=== PATIENT | female | born 2000 | race Caucasian/White ===

== ENCOUNTER 2022-03-21 08:30 | Outpatient (RCR) | payer OTHER, SELFPAY ==
--- NOTE | 2022-02-16 14:05 | PTOPEVAL1 ---
Assessment and note entered by Dilia Larios, PT Evaluation Information Assessment Status Evaluation Diagnosis left patellofemoral Subjective Information Used to dance competitively ~8 years Reported Pain Level Pain Score 8: Self Report Assessment PT Clinical Summary Pt presents w/ c/o left knee pain w/ patellofemoral disorder. Pt presents with her mother, and a neoprene sleeve with patellar tracking support. Today she demo's high arches, laterally situated patella bilat, decreased L knee ROM, difficulty with quad strength testing d/t pain, increased edema superior and inferior patella, and giat abnormality d/t pain. Pt works in a daycare requiring standing, lifting, bending and walking which are difficult for her secondary to pain. Today she was educated on proper use of her neoprene sleeve and application of patellar tracking component, advised to purchase arch supports to prevent foot supination and thus poor knee alignment, and educated on importance of ice for antiinflammatory effect. Pt will greatly benefit from physical therapy to address pain, swelling, ROM and strength deficits, and thus gait and mobility issues. Plan of Care Interventions Check Out for Orthotic/Pr,Electrical Stimulation, Hot Pack/Cold Pack,Manual Therapy,Neuro Re- education,Therapeutic Activities,Therapeutic Exercise,Other Other Interventions Taping for patellar tracking PT Services Indicated Yes These treatments will address the objective and functional deficits as defined above. The patient will be advanced safely and appropriately in order for the patient to progress towards his/her prior level of function. Additional exercises will be introduced and as well as a comprehensive home exercise program upon discharge, if needed, ?to ensure carryover of functional gains achieved in the clinic. This treatment plan has been reviewed and agreement upon by the patient.
--- NOTE | 2022-02-28 08:18 | PCPTNOTE ---
Patient did not show up for scheduled appointment this date. Called and had to leave a message.
--- NOTE | 2022-03-08 08:02 | PCPTNOTE ---
Patient did not show up for scheduled appointment this date. Called and left voice mail about missed appointment. reminded Pt of upcoming appointment on 03/09/22 @ 08:30. Informed Pt this is second N/S and if she N/S again we will be discharging her per our N/S policy.
--- NOTE | 2022-03-08 08:14 | PCPTNOTE ---
Pt called back stating today's appointment should've been canceled due to having her appointment tomorrow on 03/09/22. She couldn't remember who she talked to but the appointment should've been canceled. Canceled appointment on our end and apologized for the confusion and mistake.
--- NOTE | 2022-05-09 11:57 | PTOPDC ---
Assessment and note entered by Dilia Larios, PT Assessment Status Discharge - Pt Not Present Diagnosis left patellofemoral Subjective Information Used to dance competitively ~8 years Assessment PT Clinical Summary Pt attended 5 visits of physical therapy, did not return after 03/21/2022. Thus pt is being discharged from therapy POC d/t nonattendance.
== END 2022-05-09 13:31 | disposition home or self-care (01) ==
LOC: ANHPT 08:30
PROVIDERS: PCP Nurse Practitioner Family; Visit Provider Family Medicine Sports Medicine
DX: M22.2X2 Patellofemoral disorders, left knee (principal)
CPT/HCPCS: 97014; 97110; 97161; 97530; 99199; G0283

== ENCOUNTER 2024-08-17 19:49 | Emergency (ER) | payer OTHER, SELFPAY ==
--- NOTE | ~2024-08-17 | XR_ITS ---
XR ankle LT min 3V DATE: 08/17/2024 20:44 INDICATION: Generalized ankle pain after tripping TECHNIQUE: 4 views COMPARISON: None FINDINGS: No fracture or dislocation of the ankle or disruption of the ankle mortise. No periosteal r eaction or bone destruction. IMPRESSION: No fracture or dislocation Reviewed, dictated and finalized at location A. IMPRESSION: No fracture or dislocation
[2024-08-17 19:49] VITALS: BP 135/85; PULSE 84; RESP 18; TEMP 36.3; O2SAT 97
--- OUTSIDE RECORDS SUMMARY | 2024-08-17 19:51 | XMS_ITS | Clinical Summary ---
Author Organization [facility] Address [facility] [place] [address] Care Team Providers Care Engineer Fishing Vessel Name Role Phone None, Provider MD Primary Care Provider Unavaila ble Allergies Active Allergy Reactions Criticality Noted Date Comments Azithromycin Vomiting High 02/21/2021 Medications No known medications Social History Tobacco Use Types Packs/Day Years Used Date Smoking Tobacco: Never Smokeless Tobacco: Never Tobacco Cessation:Counseling Given: Not Answered Alcohol Use Standard Drinks/Week Comments Never 0 (1 standard drink = 0.6 oz pur e alcohol) Comments Unknown Sex and Gender Information Value Date Recorded Sex Assigned at Not on file Legal Sex Female 6:57 PM CDT Gender Identity Not on file Sexual Orientation Not on file Last Filed Vital Signs Vital Sign Reading Time Taken Comments Blood Pressure 101/54 05/14/2022 8:00 PM WEATHER TEACHER Pulse 78 05/14/2022 7:30 PM WEATHER TEACHER Temperature 36.6 C (97.8 F) 05/14/2022 6:01 PM WEATHER TEACHER Respiratory Rate 16 05/14/2022 7:30 PM WEATHER TEACHER Oxygen Saturation 98% 05/14/2022 8:00 PM WEATHER TEACHER Inhaled Oxygen Concentration - - Weight 77.1 kg (170 lb) 05/14/2022 6:01 PM WEATHER TEACHER Height 167.6 cm (5' 6 ) 05/14/2022 6:01 PM WEATHER TEACHER Body Mass Index 27.44 05/14/2022 6:01 PM WEATHER TEACHER Plan of Treatment Health Maintenance Due Date Last Done Comments Cervical Cancer Screening Pap Smear (Age 21 to 29) Every 3 Years 2001 Cervical Cancer Screening 2001 Annual Physical 2004 HPV Vaccines (1 - 3-dose series) 2016 Meningococcal B Vaccine (1 of 2 - Standard) 2017 Hepatitis C 2019 DTaP, Tdap and Td Vaccines (1 - Tdap) 2020 Hepatitis B Vaccines (1 of 3 - 19+ 3-dose series) 2020 COVID-19 Vaccine (5 - season) 2024 04/08/2022, 03/19/2021, 09/11/2020, Additional history exists Influenza Adult (#1) 2024 04/08/2022, 02/26/2021, 02/28/2020, Additional history exists Meningococcal Vaccine Aged Out No valente alexx eligible based on patient's age to complete this topic Pneumococcal Vaccine: Pediatrics (0 to 5 Years) and At-Risk Patients (6 to 64 Years) Aged Out No longer eligible based on patient's age to complete this topic RSV Immunizations Under 20 Months Aged Out No longer eligible based on patient's age to complete this topic Insurance [employer] Care Teams Engineer Fishing Vessel Relationship Specialty Start Date End Date None, Provider, MD PCP - General UNKNOWN PHYSICIAN SPECIALTY 05/14/22
--- OUTSIDE RECORDS SUMMARY | 2024-08-17 19:51 | XMS_ITS | Referral Summary ---
Author Organization [facility] [address] Address [address] [place] [phone] Care Team Providers Care Program Manager Rn Name Role Phone Jason Presley MD Primary Care Provider [phone] Foreign Osborn MD Unavailable [phone] Encounters Date Type Department Care Team Description 08/11/2024 7:00 PM CDT E-Visit [facility] Care [address] [place] [phone] Dayna Ornelas NP Your Medications 08/11/2024 Patient Self-Triage [facility]/ Physicians [address] [place] [phone] Mychart, Generic Provider 08/06/2024 5:41 PM CDT - 08/06/2024 5:58 PM CDT Emergency [facility] Emergency Department [address] [place] [address] Discharge Disposition: Left without being seen 08/06/2024 4:45 PM CDT Office Visit [facility] Care at [address] [phone] Sherly Montana PA Facial injury, initial encounter (Primary Dx) 08/06/2024 2:25 PM CDT E-Visit [facility] [address] [phone] Yeimy Priest NP E-Visit for Headache 08/06/2024 Patient Self-Triage [facility] HealthCare/ Physicians [address] [place] [address] Mycavilat, Generic Provider from Last 3 Months Allergies Active Allergy Reactions Criticality Noted Date Comments Azithromycin Vomiting High 02/21/2021 Medications albuterol HFA (PROVENTIL HFA,VENTOLIN HFA,PROAIR HFA) 90 mcg/actuation inhalerIndicatio ns:Hx of wheezing Inhale 2 puffs every 6 (six) hours as needed for wheezing 1 each 4 12/22/19 25 Active Additional Information Patient not taking.Reported on 08/06/[address] (VOLTAREN) 75 mg EC tablet Take 1 tablet (75 mg total) by mouth 2 (two) times a day as needed (pain) 60 tablet 4 Active cyclobenzaprine (FLEXERIL) 5 mg tablet Take 1 tablet (5 mg total) by mouth 3 (three) times a day as needed for muscle spasms Can cause fatigue 30 tablet 4 Active nitrofurantoin monohydrate (Macrobid) 100 mg capsule Take 1 capsule (100 mg total) by mouth 2 (two) times a day for 7 days 14 capsule 5 08/19/19 25 Active Active Problems Problem Noted Date Diagnosed Date Scoliosis of thoracic spine 04/14/2024 Assessment & Plan (04/14/2024 1:44 PM MITIGATION SUPERVISOR): Mild curve noted on exam and is apparent when looking at a previous chest x-ray. Will obtain thoracic spine x-ray. Could be contributing to patient's pain, although I think it's mostly muscular. Will refer to physical therapy. Continue nsaids. Flexeril at bedtime to help with sleep/ comfort. She has never had scoliosis films. May consider in future as needed. Acute left-sided thoracic back pain 04/14/2024 Wheezing 09/02/2023 Assessment & Plan (09/02/2023 4:51 PM CDT): History wheezing. Has used albuterol inhaler. Will order pulmonary function tests Well adult exam 07/12/2022 Assessment & Plan (09/02/2023 4:51 PM CDT): -Recommended: Healthy diet. Avoiding junk food/fast food. -30 minutes of exercise most days of the week. Increase to 45 minutes for weight loss. Health Maintenance reviewed - . -Influenza vaccine every year Recommend: -There are no preventive care reminders to display for this patient. -F/u in 1 year for Annual PE or sooner if needed Assessment & Plan (07/12/2022 8:20 AM MITIGATION SUPERVISOR): A(n) yearly well adult visit has been performed today. Karen Jesus is not up to date on screening tests. She is in need of Cholesterol screening and Cervical cancer screening. She is not up to date on needed preventative vaccinations; She is in need of Tdap/Td, HPV and Meningococcal. We discussed healthy lifestyle habits, educational material has been given. Medications reviewed, changes documented as per the medical record and discussed with patient along with risks vs benefits. Resolved Problems Problem Noted Date Diagnosed Date Resolved Date Seasonal allergic rhinitis due to pollen 08/19/2021 04/14/2022 Assessment & Plan (09/06/2021 8:12 PM CDT): Continue with Miriam 60 mg 1 b.i.d.. Will also add singular 10 mg 1 at 5:00 p.m.. Encourage fluids, water with lemon, lemonade, no milk. Talked to mom about seeing an feed manager due to in the insurance at this time she does not feel that is feasible. Assessment & Plan (08/19/2021 3:25 PM CDT): Miriam 60 mg 1 q.12 hours 10. Days with refills Push fluids, hot tea with lemon and honey, eliminated, no male no ice cream. Will continue with Singulair as stated. ETD (Eustachian tube dysfunction), bilateral 2 04/14/2022 Assessment & Plan (09/06/2021 8:13 PM CDT): ETD her still not open. Suggest to mom and patient that we see an ENT to see what else can be done to resolve this problem. Continue with medications as ordered. Referral to ENT was made Assessment & Plan (08/19/2021 3:23 PM CDT): ETD-the again use Miriam 60 mg 1 b.i.d. 10. Days Also use Singulair 10 mg 1 daily 5:00 p.m.. Will give Kenalog 40 mg IM today x1 Cough 08/19/2021 12/29/2021 Assessment & Plan (09/06/2021 8:14 PM CDT): Does have a slight cough due to drainage. Requested the use a Delsym 24 hour cough syrup as needed. Push fluids, avoid milk. Assessment & Plan (08/19/2021 3:17 PM CDT): Note woken try to control nasal congestion with Miriam 60 mg b.i.d. Eighth as persistent cough wheeze the Delsym 12 hour cough formula. As needed. Encouraged her to keep her fluids up. Use hot tea with lemon and honey. To use lemonade. At nighttime to sleep on 2 pillows if needed. Irregular menses 07/24/2021 04/14/2022 Assessment & Plan (07/24/2021 10:56 AM MITIGATION SUPERVISOR): Keep menstrual calendar. On counter no have any days cycle 1 if there are any problems with headaches, cramping, any clotting or adam bleeding Visit for TB skin test 07/24/202112/29 Assessment & Plan (07/24/2021 11:02 AM MITIGATION SUPERVISOR): The the TB skin test today, will be read on Sunday. Discussed test with patient before giving the small injection, talked with her in regards to having the test had are red, it not to play with the area where the injection was given. As if she had a major reaction to injection to please call the office or seek medical attention Incomplete immunization status 07/24/2021 04/14/2022 Assessment & Plan (07/24/2021 11:12 AM MITIGATION SUPERVISOR): Noted this time immunization record is questionable, mother does not know with the record is at. Today will talk to her in regards to having titers done in regards to MMR and varicella. States understands will also consider check with the school and past provider for record. Immunizations Immunization Administration Dates Next Due Influenza, Quadrivalent, Winnie l Culture-based MDCK, Preservative Free, Antibiotic Free, Intramuscular 06/02/2023 Influenza, Quadrivalent, Spl it, Preservative Free, Intramuscular 04/08/2022,02/26/2021,02/28/2020,06/14 Influenza, Trivalent, Cell Culture-based MDCK, Preservative Free, Antibiotic Free, Intramuscular 06/02/2023 Influenza, Trivalent, IM (MDV) 06/18/2017,2014,03/06/2014 Influenza, Unspecified 03/24/2024,03/14/2022 PPD TEST 05/29/2023,08/29/2022,07/22/2021 Pfizer SARS-CoV-2 Monovalent Vaccination (12+ Yrs) PURPLE 03/14/2022 Pfizer Sars-Cov-2 Bivalent V accination (12+ YRS) 04/08/2022 Sars-cov-2 Covid-19 Mrna, Bi valent, Original/ade Ba.1 06/02/2023 Tdap 10/23/2022 Social History Tobacco Use Types Packs/Day Years Used Date Smoking Tobacco: Never Passive Smoke Exposure: Never Smokeless Tobacco: Never Tobacco Cessation:Counseling Given: Not Answered PHQ-2 Answer Date Recorded PHQ-2 Total Score (If total score is 3 or more points, staff should administer the PHQ-9) 0 04/14/2024 Personal Safety Answer Date Recorded Have you ever been in or are you currently in a harmful physical or emotional relationship or is someone making you feel afraid or unsafe? Denies 03/27/2023 Comments No Sex and Gender Information Value Date Recorded Sex Assigned at Not on file Legal Sex Female 4:43 PM MITIGATION SUPERVISOR Gender Identity Female 12/25/2022 5:34 AM CDT Sexual Orientation Not on file Last Filed Vital Signs Vital Sign Reading Time Taken Comments Blood Pressure 122/82 08/06/2024 4:32 PM CDT Pulse 77 08/06/2024 4:32 PM CDT Temperature 36.6 C (97.9 F) 08/06/2024 4:32 PM CDT Respiratory Rate 16 08/06/2024 4:32 PM CDT Oxygen Saturation 98% 08/06/2024 4:32 PM CDT Inhaled Oxygen Concentration - - Weight 89.4 kg (197 lb) 08/06/2024 4:32 PM CDT Height 167.6 cm (5' 6 ) 04/14/2024 11:19 AM MITIGATION SUPERVISOR Body Mass Index 31.8 04/14/2024 11:19 AM MITIGATION SUPERVISOR Plan of Treatment Not on file Insurance [facility] Care Teams Program Manager Rn Relationship Specialty Start Date End Date Jason Presley MD [address] [place] [address] PCP - General Family Medicine 12/13/21 Foreign Osborn MD [address] [place] [address] DR GALEANA [address] [address] Surgeon Orthopedic Surgery 08/29/22
--- OUTSIDE RECORDS SUMMARY | 2024-08-17 19:51 | XMS_ITS | Clinical Summary ---
Author Organization [facility] [address] Address [address] [place] [phone] Care Team Providers Care Resident Inspector Name Role Phone Jason Presley MD Primary Care Provider [phone]- [phone] Foreign Osborn MD Unavailable [phone] Allergies Active Allergy Reactions Criticality Noted Date [...] 04/14/2024 Assessment & Plan (04/14/2024 1:44 PM LOAN PROCESSOR): Mild curve noted on exam and is [...] needed Assessment & Plan (07/12/2022 8:20 AM LOAN PROCESSOR): A(n) yearly well adult visit has been [...] milk. Talked to mom about seeing an supervisor agency appointments due to in the insurance at this time she does not feel that is feasible. Assessment & Plan (08/19/2021 3:25 PM CDT): Miriam 60 mg 1 q.12 hours 10. Days with refills Push fluids, hot tea with lemon and honey, eliminated, no male no ice cream. Will continue with Singulair as stated. ETD (Eustachian tube dysfunction), bilateral 04/14/2022 Assessment & Plan (09/06/2021 8:13 PM [...] 04/14/2022 Assessment & Plan (07/24/2021 10:56 AM LOAN PROCESSOR): Keep menstrual calendar. On counter no have any days cycle 1 if there are any problems with headaches, cramping, any clotting or adam bleeding Visit for TB skin test 07/24/202112/29 Assessment & Plan (07/24/2021 11:02 AM LOAN PROCESSOR): The the TB skin test today, will [...] 04/14/2022 Assessment & Plan (07/24/2021 11:12 AM LOAN PROCESSOR): Noted this time immunization record is questionable, mother does not know with the record is at. Today will talk to her in regards to having titers done in regards to MMR and varicella. States understands will also consider check with the school and past provider for record. Encounters Date Type Department Care Team Description 08/11/2024 7:00 PM CDT E-Visit [facility] Care [address] [place] [phone] Dayna Ornelas NP Your Medications 08/11/2024 Patient Self-Triage [facility] HealthCare/ Physicians [facility] [place] [address] Mychart, Generic Provider 08/06/2024 5:41 PM CDT - 08/06/2024 5:58 PM CDT Emergency [facility] Emergency Department [address] [place] [address] Discharge Disposition: Left without being seen 08/06/2024 4:45 PM CDT Office Visit [facility] Care at [address] [phone] Sherly Montana PA Facial injury, initial encounter (Primary Dx) 08/06/2024 2:25 PM CDT E-Visit [facility] Care [address] [place] [phone] Yeimy Priest NP E-Visit for Headache 08/06/2024 Patient Self-Triage [facility] HealthCare/ Physicians [facility] [place] [address] Mychart, Generic Provider from Last 3 Months Immunizations Immunization Administration Dates Next Due Influenza, [...] YRS) 04/08/2022 Sars-cov-2 Covid-19 Mrna, Bi valent, Original/omicron Ba.1 06/02/2023 Tdap 10/23/2022 Medical History Medical History Date Comments Seasonal allergic rhinitis due to pollen 08/20/19 ETD (Eustachian tube dysfunction), bilateral 07/27 Irregular menses 07/24/2021 Incomplete immunization status 07/24/2021 Family History Medical History Relation Name Comments Cholelithiasis Mother removed at ag e 25 or so Relation Name Status Comments Mother Alive Social History Tobacco Use Types Packs/Day Years [...] on file Legal Sex Female 4:43 PM LOAN PROCESSOR Gender Identity Female 12/25/2022 5:34 AM CDT Sexual Orientation Not on file Obstetrics History Last Filed Vital Signs Vital Sign Reading [...] cm (5' 6 ) 04/14/2024 11:19 AM LOAN PROCESSOR Body Mass Index 31.8 04/14/2024 11:19 AM LOAN PROCESSOR Plan of Treatment Health Maintenance Due Date Last Done Comments Cervical Cancer Screening 2001 Hepatitis C Screening 2001 Varicella Vaccines (1 of 2 - 13+ 2-dose series) 2014 Meningococcal B Vaccine (1 of 2 - Standard) 2017 Hepatitis B Screening 2019 Regular Well Visit/Exam 18-64 08/23/2024 08/24/2023, 08/29/2022, 07/12/2022 Depression Screening 04/14/2025 04/14/2024, 08/24/2023, 08/29/2022, Additional history exists DTaP/Tdap/Td Vaccine (2 - Td or Tdap) 10/23/2032 10/23/2022 Covid-19 Vaccine Completed 03/21/2024, 10/2023, 06/02/2023, Additional history exists Influenza Vaccine Completed 03/24/2024, , 06/02/2023, Additional history exists HPV Vaccines Discontinued Pneumococcal vaccine <65 Aged Out No longer eligible based on patient's age to complete this topic Insurance [facility] Care Teams Resident Inspector Relationship Specialty Start Date End Date Jason Presley MD [address] [place] [id number] PCP - General Family Medicine 12/13/21 Foreign Osborn MD [address] [place] [address] DR GALEANA B [address] [address] Surgeon Orthopedic Surgery 08/29/22
--- NOTE | 2024-08-17 20:09 | ED.LOWEXIN ---
HPI - Extremity Injury (Lower) General Chief Complaint: Extremity Injury, Lower Stated Complaint: ANKLE INJURY Time Seen by Provider: 08/17/24 19:56 Source: patient Mode of arrival: ambulatory Limitations: no limitations History of Present Illness HPI Narrative: patient is a 24-year-old female with a left ankle injury prior to arrival. Patient rolled her left ankle ground level. She has pain laterally. MD complaint: ankle injury ( Left) Onset (ago): hour(s) ( 2) Type of Injury: inversion Place: street/outdoors Severity: moderate Severity scale (1-10): 4 Relieving factors: cold therapy and immobilization Exacerbating factors: weight bearing, movement and palpation Context: walking Associated symptoms: swelling and able to partially bear weight Other symptoms: none Treatments prior to arrival: cold therapy Related Data Allergies Allergy/AdvReac Type Severity Reaction Status Date / Time azithromycin Allergy Mild Vomiting Verified 08/17/24 20:10 cephalexin Allergy Mild Rash Verified 08/17/24 20:10 CEPHALEXIN MONOHYDRATE Allergy Mild Rash Uncoded 08/17/24 20:10 Review of Systems Review of Systems: All systems reviewed & are unremarkable except as noted in HPI and below Constitutional: Constitutional: Reports no additional constitutional complaints Eyes: Eyes: Reports no additional eye complaints ENT: Reports system reviewed and no additional complaints, except as documented Cardiovascular: Cardiovascular: Reports no additional cardiovascular complaints Respiratory: Respiratory: Reports no additional respiratory complaints Gastrointestinal: Gastrointestinal: Reports no additional gastrointestinal complaints Genitourinary: Genitourinary: Reports no additional female genitourinary complaints Musculoskeletal: Musculoskeletal: Reports no additional musculoskeletal complaints Integumentary/Breasts: Skin/Breast: Reports system reviewed and no additional complaints, except as docu Neurologic: Reports system reviewed and no additional complaints, except as documented Psychiatric: Psychiatric: Reports no additional psychiatric complaints Endocrine: Endocrine: Reports no additional endocrine complaints Hematologic/Lymphatic: Hematologic/Lymphatic: Reports no additional hematologic/lymphatic complaints Allergic/Immunologic: Allergic/Immunologic: Reports no additional allergic/immunologic complaints PMFSH Social History Social History Smoking status: Never smoker Alcohol intake: never Exam Const: General: healthy appearing Nutritional Appearance: well nourished Orientation/consciousness: patient oriented x3 Limitations: no limitations HENMT: Head: normal to inspection Ears: external ears normal Face/Nose/Sinus: Normal external nose present Eyes: Conjunctivae: conjunctivae normal Pupils: Equal, round and reactive pupils present EOM: EOMs intact bilaterally Neck: Neck: normal visual inspection Chest: Chest palpation & inspection: normal inspection of the chest Resp: Effort & Inspection: normal respiratory effort and not labored Auscultation: clear to auscultation bilaterally and no crackles Cardio: Rate: regular rate Rhythm: regular rhythm Heart sounds: no murmurs GI: Inspection: non-distended GI Palp: Yes Soft to palpation and No Tenderness to palpation present (GI) Auscultation: normal bowel sounds : General: Yes bladder normal to palpation Back/Spine/Pelvis: Back: no CVA tenderness Skin: General skin exam: normal color Rashes: no rashes Wounds: no wounds Neuro: General: patient oriented x3 Cranial nerves: Yes Nystagmus not present Speech: normal speech Gait exam (Neuro): gait abnormal Other: difficulty bearing weight due to left ankle injury Extrem: General: abnormal to inspection Other: lateral swelling of the left ankle; tender to palpation laterally of the ankle Psych: Mental Status: mental status grossly normal Affect: normal affect Attitude: cooperative Course Vital Signs Vital signs: Vital Signs Temperature 36.3 C L 08/17/24 19:49 Pulse Rate 84 08/17/24 19:49 Respiratory Rate 18 08/17/24 19:49 Blood Pressure 135/85 08/17/24 19:49 Pulse Oximetry 97 08/17/24 19:49 Oxygen Delivery Room Air 08/17/24 19:49 Temperature 36.3 C L 08/17/24 19:49 Pulse Rate 84 08/17/24 19:49 Respiratory Rate 18 08/17/24 19:49 Blood Pressure 135/85 08/17/24 19:49 Pulse Oximetry 97 08/17/24 19:49 Oxygen Delivery Room Air 08/17/24 19:49 MDM - Extremity Injury (Lower) MDM Narrative Medical decision making narrative: patient is a 24-year-old female with a left ankle injury prior to arrival. We will get an x-ray at this time. She would like a work note for off work tomorrow. Imaging Data Attestation: I personally reviewed and interpreted this imaging study as follows: Radiologist's impression: X-ray left ankle was negative for acute process Discharge Plan Discharge Clinical Impression: Ankle sprain Qualifiers: Encounter type: initial encounter Involved ligament of ankle: unspecified ligament Laterality: left Qualified Code(s): S93.402A - Sprain of unspecified ligament of left ankle, initial encounter Patient Disposition: Home, Self-Care Condition: Stable Instructions: Ankle Sprain (ED) Patient Language: Lithuanian Follow-up/Referrals: Syl,Vaibhav Andres DISHROOM ATTENDANT [Non-Staff] - Stand Alone Forms: Work/School Release IP Time of Disposition: 21:08
--- OUTSIDE RECORDS SUMMARY | 2024-08-17 20:21 | XMS_ITS | Clinical Summary ---
Author Organization [facility] [address] Address [address] [place] [id number] Care Team Providers Care Rental Counter Clerk Name Role Phone Jason Presley MD Primary Care Provider [phone]- [phone] Foreign Osborn MD Unavailable [phone] Allergies Active Allergy Reactions Criticality Noted Date [...] 04/14/2024 Assessment & Plan (04/14/2024 1:44 PM WINDERMAN): Mild curve noted on exam and is [...] needed Assessment & Plan (07/12/2022 8:20 AM WINDERMAN): A(n) yearly well adult visit has been [...] milk. Talked to mom about seeing an child care provider due to in the insurance at this [...] 04/14/2022 Assessment & Plan (07/24/2021 10:56 AM WINDERMAN): Keep menstrual calendar. On counter no have any days cycle 1 if there are any problems with headaches, cramping, any clotting or adam bleeding Visit for TB skin test 07/24/202112/29 Assessment & Plan (07/24/2021 11:02 AM WINDERMAN): The the TB skin test today, will [...] 04/14/2022 Assessment & Plan (07/24/2021 11:12 AM WINDERMAN): Noted this time immunization record is questionable, mother does not know with the record is at. Today will talk to her in regards to having titers done in regards to MMR and varicella. States understands will also consider check with the school and past provider for record. Encounters Date Type Department Care Team Description 08/11/2024 7:00 PM CDT E-Visit [facility] [place] [facility] [address] [place] [phone] Dayna Ornelas NP Your Medications 08/11/2024 Patient Self-Triage [facility] Health[facility]/ Physicians [facility] [place] [address] Mychart, Generic Provider 08/06/2024 5:41 PM CDT - 08/06/2024 5:58 PM CDT Emergency [facility] Emergency Department [address] [place] [address] Discharge Disposition: Left without being seen 08/06/2024 4:45 PM CDT Office Visit [facility] Care at [address] [phone] Sherly Montana PA Facial injury, initial encounter (Primary Dx) 08/06/2024 2:25 PM CDT E-Visit [facility] [place] [facility] [address] [place] [phone] Yeimy Priest NP E-Visit for Headache 08/06/2024 Patient Self-Triage [facility]/ Physicians [facility] [place] [address] Mychart, Generic Provider from Last 3 Months [...] on file Legal Sex Female 4:43 PM WINDERMAN Gender Identity Female 12/25/2022 5:34 AM CDT [...] cm (5' 6 ) 04/14/2024 11:19 AM WINDERMAN Body Mass Index 31.8 04/14/2024 11:19 AM WINDERMAN Plan of Treatment Health Maintenance Due Date [...] patient's age to complete this topic Insurance [facility] Care Teams Rental Counter Clerk Relationship Specialty Start Date End Date Jason Presley MD [address] [place] [id number] PCP - General Family Medicine 12/13/21 Foreign Osborn MD [address] [place] [address] DR GALEANA B [address] [address] Surgeon Orthopedic Surgery 08/29/22
--- OUTSIDE RECORDS SUMMARY | 2024-08-17 20:21 | XMS_ITS | Referral Summary ---
Author Organization [facility] [place] [address] Address [address] [place] [phone] Care Team Providers Care Thermograph Operator Name Role Phone Jason Presley MD Primary Care Provider [phone] Foreign Osborn MD Unavailable [phone] Encounters Date Type Department Care Team Description 08/11/2024 7:00 PM CDT E-Visit [facility] Care [address] [place] [phone] Dayna Ornelas NP Your Medications 08/11/2024 Patient Self-Triage [facility]/ Physicians [address] [place] [id number] Mychart, Generic Provider 08/06/2024 5:41 PM CDT - 08/06/2024 5:58 PM CDT Emergency [facility] Emergency Department [address] [place] [address] Discharge Disposition: Left without being seen 08/06/2024 4:45 PM CDT Office Visit [facility] Care at [address] [phone] Sherly Montana PA Facial injury, initial encounter (Primary Dx) 08/06/2024 2:25 PM CDT E-Visit [facility] [address] [phone] Yeimy Priest NP E-Visit for Headache 08/06/2024 Patient Self-Triage [facility] HealthCare/ Physicians [address] [place] [address] Myc[employer]at, Generic Provider from Last 3 Months [...] 04/14/2024 Assessment & Plan (04/14/2024 1:44 PM J2EE CONSULTANT): Mild curve noted on exam and is [...] needed Assessment & Plan (07/12/2022 8:20 AM J2EE CONSULTANT): A(n) yearly well adult visit has been [...] milk. Talked to mom about seeing an crude tester due to in the insurance at this [...] 04/14/2022 Assessment & Plan (07/24/2021 10:56 AM J2EE CONSULTANT): Keep menstrual calendar. On counter no have any days cycle 1 if there are any problems with headaches, cramping, any clotting or adam bleeding Visit for TB skin test 07/24/202112/29 Assessment & Plan (07/24/2021 11:02 AM J2EE CONSULTANT): The the TB skin test today, will [...] 04/14/2022 Assessment & Plan (07/24/2021 11:12 AM J2EE CONSULTANT): Noted this time immunization record is questionable, [...] on file Legal Sex Female 4:43 PM J2EE CONSULTANT Gender Identity Female 12/25/2022 5:34 AM CDT [...] cm (5' 6 ) 04/14/2024 11:19 AM J2EE CONSULTANT Body Mass Index 31.8 04/14/2024 11:19 AM J2EE CONSULTANT Plan of Treatment Not on file Insurance [facility] Care Teams Thermograph Operator Relationship Specialty Start Date End Date Jason Presley MD [address] [place] [address] PCP - General Family Medicine 12/13/21 Foreign Osborn MD [address] [place] [address] DR GALE[address] [address] Surgeon Orthopedic Surgery 08/29/22
--- NOTE | 2024-08-17 21:06 | PC.NURSE ---
RESTING ON STRETCHER IN ROOM. DENIES ANY NEEDS. CALL LIGHT IN REACH
[2024-08-17 21:17] VITALS: BP 132/82; PULSE 78; RESP 20; O2SAT 100
== END 2024-08-17 21:17 | disposition home or self-care (01) ==
PROVIDERS: Emergency Provider Emergency Medicine; PCP Family Medicine
DX: S93.402A Sprain of unspecified ligament of left ankle, initial encounter (principal); X50.0XXA Overexertion from strenuous movement or load, initial encounter
CPT/HCPCS: 73610; 99283; L4350

== ENCOUNTER 2024-11-17 20:37 | Emergency (ER) | payer OTHER, SELFPAY ==
--- NOTE | ~2024-11-17 | CT_ITS ---
CLINICAL INDICATION: Periumbilical pain COMPARISON: None. TECHNIQUE: Multiple contiguous axial images of the abdomen and pelvis were performed following the ad ministration of with 100 mL Omnipaque-350 intravenous contrast The dose-length product (DLP) was 545.05 mGy-cm. Automated exposure control and iterative reconstruction technique were employed. FINDINGS/OBSERVATIONS: Visualized lower thorax: The bilateral lung bases are clear. The heart is of normal size, without pericardial effusion. Small hiatal hernia is present. Liver: The liver demonstrates homogeneous enhancement and is not enlarged. Gallbladder and biliary system: The gallbladder is only minimally distended, and otherwise unremarkable. Pancreas: The pancreas enhances homogeneously without ductal dilatation. Spleen: The spleen enhances homogeneously and is not enlarged. Kidneys: The bilateral kidneys enhance symmetrically without hydronephrosis or renal calculi. Adrenal glands: Unremarkable. Gastrointestinal tract: Fecal stasis within the colon. Appendix: The appendix is not definitively visualized. However, no pericecal inflammatory change is identified suggest the presence of acute appendicitis. Vasculature: Unremarkable. Lymph nodes: No pathologically enlarged or morphologically suspicious lymph nodes within the retroperitoneum or at the root of the mesentery. Pelvic structures: The bladder is only minimally distended, and otherwise unremarkable. The uterus is anteverted and anteflexed. Body wall and musculoskeletal: Small fat-containing umbilical hernia. No significant degenerative disease within the lower thoracic or lumbosacral spine. IMPRESSION: The appendix is not definitively visualized. However, no pericecal inflammatory change is identified suggest the presence of acute appendicitis. Small fat-containing umbilical hernia. Examination is otherwise unremarkable. Reviewed, dictated and finalized at location A.
[2024-11-17 20:48] VITALS: BP 116/84; PULSE 62; RESP 18; TEMP 36.4; O2SAT 96
--- NOTE | 2024-11-17 20:57 | PC.NURSE ---
Pt c/o abd pain, triaged, VSS in waiting room.
[2024-11-17 21:41] LABS: Add Urine Microscopic? NO; Appearance Urine Clear (Clear); Bilirubin Urine Negative (Negative); Blood Urine Negative (Negative); Color Urine Light Yellow (Yellow); Glucose Urine UA Negative (Negative); Ketones Urine Negative (Negative); Leukocyte Esterase Ur Negative LEU/UL (Negative); Nitrate Urine Negative (Negative); Protein Urine Negative (Negative); Specific Grav Ur 1.015 (1.010-1.020); Urobilinogen Urine 0.2 mg/dL (0.2-1.0); pH Urine 7.5 (5.0-8.0)
[2024-11-17 22:57] LABS: Basophils Absolute Auto 0.05 K/mm3 (0.00-0.10); Basophils Percent Auto 0.7 % (0.0-1.0); Eosinophils Absolute Auto 0.14 K/mm3 (0.02-0.50); Eosinophils Percent Auto 2.1 % (1.0-6.0); Hematocrit 37.9 % (35.0-49.0); Hemoglobin 12.5 g/dL (12.0-15.0); Immature Granulocyte Absolute 0.02 K/mm3 (0.00-0.00); Immature Granulocyte Percent A 0.3 % (0.0-0.0); Lymphocytes Absolute Auto 2.01 K/mm3 (1.10-4.50); Lymphocytes Percent Auto 29.9 % (18.0-42.0); Mean Corpuscular Hemoglobin 29.1 pg (27.0-31.0); Mean Corpuscular Volume 88.1 fL (78.0-102.0); Mean Platelet Volume 10.2 fl (9.2-11.8); Monocytes Absolute Auto 0.47 K/mm3 (0.10-0.90); Neutrophils Absolute Auto 4.04 K/mm3 (1.70-7.20); Platelet Count Result 306 K/mm3 (150-420); Red Cell Distribution Width 11.9 % (11.6-14.4); White Blood Count 6.7 K/mm3 (4.8-10.8)
[2024-11-17 23:00] LABS: Pregnancy On Board Control Positive; Urine Pregnancy Test Negative
[2024-11-17 23:09] LABS: Alanine Aminotransferase 20 U/L (6-35); Albumin Level 4.6 g/dL (3.5-5.1); Alkaline Phosphatase 75 U/L (38-126); Anion Gap 7 mmol/L (4-12); Aspartate Amino Transferase 25 U/L (14-36); Bilirubin,Total 1.3 mg/dL (0.2-1.3); Blood Urea Nitrogen 5 mg/dL (7-17); Carbon Dioxide 25 mmol/L (22-30); Chloride 106 mmol/L (98-107); Estimated CRCL calculation 115 ml/min; Estimated Glomerular Filt Rate > 60; Glucose 96 mg/dL (65-110); Lactic Acid Reflex 0.7 mmol/L (0.4-2.0); Lipase 55 U/L (23-300); Osmolality Calculated 283 mOsm/kg (285-295); Potassium 3.9 mmol/L (3.4-5.0); Sodium 138 mmol/L (137-145); Total Protein 7.4 g/dL (6.3-8.2)
[2024-11-17 23:11] LABS: Partial Thromboplastin Time 27.5 Sec (23.9-30.70); Prothrombin Time 10.9 Seconds (9.50-12.1)
--- NOTE | 2024-11-18 00:04 | ED_ITS ---
HPI - Abdominal Pain General Chief Complaint: Abdominal Pain Stated Complaint: Stomach pain Time Seen by Provider: 11/17/24 21:14 Source: patient and family Mode of arrival: ambulatory Limitations: no limitations History of Present Illness HPI narrative: Patient is a 24-year-old female with abdominal pain and associated nausea and vomiting this evening. Her symptoms started today. She got progressively worse per history and came to the ER for evaluation. It appears she also needs a work note. She has been having GERD issues for the past 3-4 months. MD elicited complaint: abdominal pain Pertinent past history: none Onset (ago): day(s) ( One) Pain Consistency: intermittent Location: diffuse and epigastric Severity: mild Pain scale (0-10): 3 Quality: cramping and sharp Radiation: none Migration to: no migration Exacerbating factors: nothing Relieving factors: nothing Context: confirms other ( patient having GERD for the past 3-4 months and now having abdominal pain with nausea vomiting today) Associated symptoms: nausea and vomiting Treatments prior to arrival: antacids Related Data Allergies Allergy/AdvReac Type Severity Reaction Status Date / Time azithromycin Allergy Mild Vomiting Verified 08/17/24 20:10 cephalexin Allergy Mild Rash Verified 08/17/24 20:10 CEPHALEXIN MONOHYDRATE Allergy Mild Rash Uncoded 08/17/24 20:10 Review of Systems 2 Review of Systems: All systems reviewed & are unremarkable except as noted in HPI and below Constitutional: Constitutional: Reports no additional constitutional complaints Eyes: Eyes: Reports no additional eye complaints ENT: Reports system reviewed and no additional complaints, except as documented Cardiovascular: Cardiovascular: Reports no additional cardiovascular complaints Respiratory: Respiratory: Reports no additional respiratory complaints Gastrointestinal: Gastrointestinal: Reports no additional gastrointestinal complaints Genitourinary: Genitourinary: Reports no additional female genitourinary complaints Musculoskeletal: Musculoskeletal: Reports no additional musculoskeletal complaints Integumentary/Breasts: Skin/Breast: Reports system reviewed and no additional complaints, except as docu Neurologic: Reports system reviewed and no additional complaints, except as documented Psychiatric: Psychiatric: Reports no additional psychiatric complaints Endocrine: Endocrine: Reports no additional endocrine complaints Hematologic/Lymphatic: Hematologic/Lymphatic: Reports no additional hematologic/lymphatic complaints Allergic/Immunologic: Allergic/Immunologic: Reports no additional allergic/immunologic complaints PMFSH Social History Social History Smoking status: Never smoker Alcohol intake: never Exam 2 Const: General: healthy appearing Nutritional Appearance: well nourished Orientation/consciousness: patient oriented x3 Limitations: no limitations HENMT: Head: normal to inspection Ears: external ears normal F nicolle/Nose/Sinus: Normal external nose present Eyes: Conjunctivae: conjunctivae normal Pupils: Equal, round and reactive pupils present EOM: EOMs intact bilaterally Neck: Neck: normal visual inspection Chest: Chest palpation & inspection: normal inspection of the chest Resp: Effort & Inspection: normal respiratory effort and not labored A uscultation: clear to auscultation bilaterally and no crackles Cardio: Rate: regular rate Rhythm: regular rhythm Heart sounds: no murmurs GI: Inspection: non-distended GI Palp: Yes Soft to palpation, Yes Tenderness to palpation present (GI) ( diffuse and specifically epigastrium), No Guarding due to palpation present (GI), No Rigid due to palpation, No Hernia present, No Palpable mass present and No Rebound tenderness present A uscultation: normal bowel sounds : General: Yes bladder normal to palpation Back/Spine/Pelvis: Back: no CVA tenderness Skin: General skin exam: normal color Rashes: no rashes Wounds: no wounds Neuro: General: patient oriented x3 Cranial nerves: Yes Nystagmus not present Speech: normal speech Gait exam (Neuro): Normal gait present Extrem: General: normal to inspection Psych: Mental Status: mental status grossly normal Affect: normal affect Attitude: cooperative Course Vital Signs Vital signs: Vital Signs Temperature 36.4 C 11/17/24 20:48 Pulse Rate 62 11/17/24 20:48 Respiratory Rate 18 11/17/24 20:48 Blood Pressure 116/84 11/17/24 20:48 Pulse Oximetry 96 11/17/24 20:48 Oxygen Delivery Room Air 11/17/24 20:48 Temperature 36.6 C 11/18/24 00:14 Pulse Rate 75 11/18/24 00:14 Respiratory Rate 18 11/18/24 00:14 Blood Pressure 115/62 11/18/24 00:14 Pulse Oximetry 99 11/18/24 00:14 Oxygen Delivery Room Air 11/18/24 00:14 MDM - Abdominal Pain MDM Narrative Medical decision making narrative: patient is a 24-year-old female with abdominal pain and GERD. We will do a GI workup at this time. Workup was negative for acute process. Will send home with PPI. Outpatient further workup. Lab Data Attestation: I reviewed the patient's lab results. 11/17/24 22:53 11/17/24 22:53 Labs: Lab Results 11/17/24 11/17/24 Range/Units 21:38 22:53 WBC 6.7 (4.8-10.8) K/mm3 RBC 4.30 (4.20-5.40) M/mm3 Hgb 12.5 (12.0-15.0) g/dL Hct 37.9 (35.0-49.0) % MCV 88.1 (78.0-102.0) fL MCH 29.1 (27.0-31.0) pg MCHC 33.0 (32-36) g/dL RDW 11.9 (11.6-14.4) % Plt Count 306 (150-420) K/mm3 MPV 10.2 (9.2-11.8) fl Immature Gran % (Auto) 0.3 H (0.0-0.0) % Neut % (Auto) 60.0 (50.0-70.0) % Lymph % (Auto) 29.9 (18.0-42.0) % [place] % (Auto) 7.0 (2.0-11.0) % Eos % (Auto) 2.1 (1.0-6.0) % Baso % (Auto) 0.7 (0.0-1.0) % Lymph # (Auto) 2.01 (1.10-4.50) K/mm3 [place] # (Auto) 0.47 (0.10-0.90) K/mm3 Eos # (Auto) 0.14 (0.02-0.50) K/mm3 Baso # (Auto) 0.05 (0.00-0.10) K/mm3 Abs Immat Gran (auto) 0.02 H (0.00-0.00) K/mm3 Absolute Neuts (auto) 4.04 (1.70-7.20) K/mm3 Absolute Nucleated RBC 0.00 (0.00-0.00) K/mm3 Nucleated RBC % 0.0 (0-0.0) % PT 10.9 (9.50-12.1) Seconds INR 1.0 APTT 27.5 (23.9-30.70) Sec Sodium 138 (137-145) mmol/L Potassium 3.9 (3.4-5.0) mmol/L Chloride 106 (98-107) mmol/L Carbon Dioxide 25 (22-30) mmol/L Anion Gap 7 (4-12) mmol/L BUN 5 L (7-17) mg/dL Creatinine 0.63 L (0.7-1.0) mg/dL Estim Creat Clear Calc 115 ml/min Estimated GFR > 60 (59 - ) Glucose 96 (65-110) mg/dL Calculated Osmolality 283 L (285-295) mOsm/kg Lactic Acid 0.7 (0.4-2.0) mmol/L Calcium 9.0 (8.4-10.2) mg/dL Total Bilirubin 1.3 (0.2-1.3) mg/dL AST 25 (14-36) U/L ALT 20 (6-35) U/L Alkaline Phosphatase 75 (38-126) U/L Total Protein 7.4 (6.3-8.2) g/dL Albumin 4.6 (3.5-5.1) g/dL Lipase 55 (23-300) U/L Urine Color Light yellow (Yellow) Urine Appearance Clear (Clear) Urine pH 7.5 (5.0-8.0) Ur Specific [place] 1.015 (1.010-1.020) Urine Protein Negative (Negative) Urine Glucose (UA) Negative (Negative) Urine Ketones Negative (Negative) Ur Blood (Man) Negative (Negative) Urine Nitrate Negative (Negative) Urine Bilirubin Negative (Negative) Urine Urobilinogen 0.2 (0.2-1.0) mg/dL Leukocyte Esterase Rfl Negative (Negative) JOSE ROBERTO/UL Urine Test Negative Imaging Data Attestation: I personally reviewed and interpreted this imaging study as follows: Radiologist's impression: ITS Impressions Abdomen/Pelvis CT 11/17/24 23:45 IMPRESSION: The appendix is not definitively visualized. However, no pericecal inflammatory change is identified suggest the presence of acute appendicitis. Small fat-containing umbilical hernia. Examination is otherwise unremarkable. Discharge Plan Discharge Clinical Impression: GERD without esophagitis Abdominal pain Qualifiers: Abdominal location: generalized Qualified Code(s): R10.84 - Generalized abdominal pain Patient Disposition: Home Condition: Stable Instructions: GERD (Gastroesophageal Reflux Disease) (DC), Abdominal Pain (ED) Patient Language: Dominican Prescriptions: New pantoprazole [Protonix] 40 mg tablet,delayed release (DR/EC) 40 mg PO DAILY 20 Days Qty: 20 0RF Follow-up/Referrals: Fernandez,Jason Hdez MD [Primary Care Provider] - Stand Alone Forms: Work/School Release IP Time of Disposition: 00:05
[2024-11-18 00:14] VITALS: BP 115/62; PULSE 75; RESP 18; TEMP 36.6; O2SAT 99
--- NOTE | 2024-11-20 12:40 | PC.NURSE ---
PRELIMINARY BLOOD CULTURE NO GROWTH TO DATE
--- NOTE | 2024-11-22 14:03 | PC.NURSE ---
preliminary blood cultures x2 reviewed. no growth to date
--- NOTE | 2024-11-24 13:01 | PC.NURSE ---
blood culture final no growth
--- NOTE | 2024-11-26 14:45 | PC.NURSE ---
final blood cultures x2 reviewed, no growth after 5 days. no change in plan of care
== END 2024-11-18 00:14 | disposition home or self-care (01) ==
PROVIDERS: Emergency Provider Emergency Medicine; PCP Family Medicine
DX: K21.9 Gastro-esophageal reflux disease without esophagitis (principal); R10.84 Generalized abdominal pain
CPT/HCPCS: 36415; 74177; 80053; 81003; 81025; 83605; 83690; 85025; 85610; 85730; 87040; 99284; Q9967

== ENCOUNTER 2024-12-20 01:08 | Emergency (ER) | payer OTHER, SELFPAY ==
--- NOTE | ~2024-12-20 | XR_ITS ---
HISTORY: LEFT WRIST PAIN X 1 WEEK. NKI. POSTERIOR PAIN. COMPARISON: None TECHNIQUE: 3 views of the left wrist were performed. FINDINGS: No acute fracture is identified. The carpal arcs are intact. Mild radiocarpal joint space narrowing with sclerosis of the distal radius is present. The remaining visualized joint spaces are otherwise preserved. Trace negative ulnar variance is detected. Bone mineralization is age-appropriate. No significant soft tissue swelling is noted. No radiopaque foreign body is identified. IMPRESSION: Mild degenerative disease, without acute fracture or dislocation Reviewed, dictated and finalized at location A.
[2024-12-20 01:08] VITALS: BP 116/87; PULSE 76; RESP 18; TEMP 36.5; O2SAT 100
--- NOTE | 2024-12-20 01:11 | ED_ITS ---
HPI - Extremity Injury (Upper) General Chief Complaint: Extremity Injury, Upper Stated Complaint: R Wrist Injury Time Seen by Provider: 12/20/24 01:11 Source: patient Mode of arrival: ambulatory Limitations: no limitations History of Present Illness HPI narrative: patient is a 24-year-old female with a left wrist pain for the past week. 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 No major trauma to this area. She is starting to have some shooting pains in the left wrist into the hand as time has gone on over the past week. Difficulty moving distally due to pain. complaint: injury to: left and wrist Onset (ago): week(s) ( One) Other injuries: none Place: work Severity: moderate Severity scale (1-10): 6 Relieving factors: immobilization Exacerbating factors: movement of extremity Context: other ( patient does not particularly remember an injury but does walk dogs and has pain on the left wrist causing some shooting tingling pains now) Associated symptoms: denies other symptoms Treatments prior to arrival: other ( none) Related Data Allergies Allergy/AdvReac Type Severity Reaction Status Date / Time azithromycin Allergy Mild Vomiting Verified 08/17/24 20:10 cephalexin Allergy Mild Rash Verified 08/17/24 20:10 CEPHALEXIN MONOHYDRATE Allergy Mild Rash Uncoded 08/17/24 20:10 Review of Systems Review of Systems: All systems reviewed & are unremarkable except as noted in HPI and below Constitutional: Constitutional: Reports no additional constitutional complaints Eyes: Eyes: Reports no additional eye complaints ENT: Reports system reviewed and no additional complaints, except as d ocumented Cardiovascular: Cardiovascular: Reports no additional cardiovascular complaints Respiratory: Respiratory: Reports no additional respiratory complaints Gastrointestinal: Gastrointestinal: Reports no additional gastrointestinal co mplaints Genitourinary: Genitourinary: Reports no additional female genitourinary complaints Musculoskeletal: Musculoskeletal: Reports no additional musculoskeletal complaints Integumentary/Breasts: Skin/Breast: Reports system reviewed and no additional complaints, except as docu Neurologic: Reports system reviewed and no additional complaints, except as documented Psychiatric: Psychiatric: Reports no additional psychiatric complaints Endocrine: Endocrine: Reports no additional endocrine complaints Hematologic/Lymphatic: Hematologic/Lymphatic: Reports no additional hematologic/lymphatic complaints Allergic/Immunologic: Allergic/Immunologic: Reports no additional allergic/immunologic complaints [facility] Social History Social History Smoking status: Never smoker Alcohol intake: never Exam Const: General: healthy appearing Nutritional Appearance: well nourished Orientation/consciousness: patient oriented x3 HENMT: Head: normal to inspection Ears: external ears normal Face/Nose/Sinus: Normal external nose present Eyes: Conjunctivae: conjunctivae normal Pupils: Equal, round and reactive pupils present EOM: EOMs intact bilaterally Neck: Neck: normal visual inspection Chest: Chest palpation & inspection: normal inspection of the chest Resp: Effort & Inspection: normal respiratory effort and not labored Auscultation: clear to auscultation bilaterally and no crackles Cardio: Rate: regular rate Rhythm: regular rhythm Heart sounds: no murmurs GI: Inspection: non-distended GI Palp: Yes Soft to palpation and No Tenderness to palpation present (GI) Auscultation: normal bowel sounds : General: Yes bladder normal to palpation Back/Spine/Pelvis: Back: no CVA tenderness Skin: General skin exam: normal color Rashes: no rashes Wounds: no wounds Neuro: General: patient oriented x3, moves all extremities, no meningeal signs, no focal motor deficits and CN's II-XI intact bilaterally Extrem: General: normal to inspection Other: tender left wrist medial aspect around the ulnar process; no major swelling or ecchymosis Psych: Mental Status: mental status grossly normal Affect: normal affect Attitude: cooperative Course Vital Signs Vital signs: Vital Signs Temperature 36.5 C 12/20/24 01:08 Pulse Rate 76 12/20/24 01:08 Respiratory Rate 18 12/20/24 01:08 Blood Pressure 116/87 12/20/24 01:08 Pulse Oximetry 100 12/20/24 01:08 Oxygen Delivery Room Air 12/20/24 01:08 Temperature 36.5 C 12/20/24 01:08 Pulse Rate 76 12/20/24 01:08 Respiratory Rate 18 12/20/24 01:08 Blood Pressure 116/87 12/20/24 01:08 Pulse Oximetry 100 12/20/24 01:08 Oxygen Delivery Room Air 12/20/24 01:08 MDM - Extremity Injury (Upper) MDM Narrative Medical decision making narrative: patient is a 24-year-old female with a left wrist pain with a possible injury 1 week ago. We will get x-rays at this time. Imaging Data Attestation: I personally reviewed and interpreted this imaging study as follows: Radiologist's impression: Left wrist x-ray is negative for acute process per my read and pending final reading by radiologist Discharge Plan Discharge Clinical Impression: Sprain and strain of wrist Patient Disposition: Home Condition: Stable Instructions: Wrist Sprain (ED) Additional Instructions: please use Tylenol or ibuprofen for pain. Rest, ice, compression with the bandage/splint and elevation will help if done in the next 2 weeks regularly. Patient Language: Vietnamese Prescriptions: No Action pantoprazole [Protonix] 40 mg tablet,delayed release (DR/EC) 40 mg PO DAILY 20 Days Qty: 20 0RF Follow-up/Referrals: Fernandez,Jason Hdez MD [Primary Care Provider] - Time of Disposition: 03:28
--- OUTSIDE RECORDS SUMMARY | 2024-12-20 01:11 | XMS_ITS | Encounter Summary ---
Author Organization [facility] Healthcare Address [address] [place] [address] Care Team Providers Care Chair Mechanic Name Role Phone Jason Presley MD Primary Care Provider [phone] Foreign Osborn MD Unavailable [phone] Reason for Visit * Reason Onset Date Comments Appointment Request 11/19/2024 Encounter Details Date Type Department Care Team (Late st Contact Info) Description 11/19/[address] [facility] Primary Care at [address] [address] Jason Presley MD [address] [place] [address] Appointment Request Social History Tobacco Use Types Packs/Day Years Used Date Smoking Tobacco: Never Passive Smoke Exposure: Never Smokeless Tobacco: Never Alcohol Use Standard Drinks/Week Comments Never 0 (1 standard drink = 0.6 oz pur e alcohol) PHQ-2 Answer Date Recorded PHQ-2 Total Score (If total score is 3 or more points, staff should administer the PHQ-9) 0 04/14/2024 Personal Safety Answer Date Recorded Have you ever been in or are you currently in a harmful physical or emotional relationship or is someone making you feel afraid or unsafe? Denies 11/19/2024 Comments No Sex and Gender Information Value Date Recorded Sex Assigned at Not on file Legal Sex Female 4:43 PM BUSINESS OFFICE ASSOCIATE Gender Identity Female 12/25/2022 5:34 AM CDT Sexual Orientation Not on file documented as of this encounter Miscellaneous Notes * Telephone Encounter - Vaibhav Bruce - 11/19/2024 12:41 PM CDT Patient has been scheduled to sooner date * Telephone Encounter - Sebastien Workman - 11/19/2024 12:12 PM CDT Appointment Request What visit type does the patient need? Visit Type: Established Patient What is the reason for the visit? ER follow up - Heartburn, Abdominal Pain What is the reason we were unable to schedule the appointment? Current appointment availability didnot meet patient's need. If applicable, were all members of the patient's PCP care team offered (e.g., nurse practioner(s), physician medical billing assistant(s)) ? Yes Additional Comments: Patient has an appt scheduled for 12/02, called to see if she could get in sooner as she is still experiencing symptoms. No sooner appts available at this time. Does message need to be routed? Yes-Action Needed documented in this encounter Plan of Treatment Not on file documented as of this encounter Visit Diagnoses Not on filedocumented in this encounter Care Teams Chair Mechanic Relationship Specialty Start Date End Date Jason Presley MD [address] [place] [address] PCP - General Family Medicine 12/13/21 Foreign Osborn MD [address] [place] [address] DR G[address] [address] Surgeon Orthopedic Surgery 08/29/22 documented as of this encounter
--- OUTSIDE RECORDS SUMMARY | 2024-12-20 01:11 | XMS_ITS | Encounter Summary ---
Author Organization [facility] Healthcare Address [address] [place] [address] Care Team Providers Care Consultant Nurse Name Role Phone Jason Presley MD Primary Care Provider [phone] Foreign Osborn MD Unavailable [phone] Encounter Details Date Type Department Care Team (Late st Contact Info) Description 12/01/2024 Results Follow-Up [facility] Medical Group Primary Care at [address] [address] Jason Presley MD [address] [place] [address] [address] [place] [address] CRP (acute phase) Social History Tobacco Use Types Packs/Day Years [...] on file Legal Sex 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
--- OUTSIDE RECORDS SUMMARY | 2024-12-20 01:11 | XMS_ITS | Referral Summary ---
Author Organization [facility] [place] [address] [place] Address [address] [place] [id number] Care Team Providers Care Bit Sharpener Operator Name Role Phone Jason Presley MD Primary Care Provider [phone] Foreign Osborn MD Unavailable [phone] Encounters Date Type Department Care Team Description 12/01/2024 Results Follow-Up [facility] Primary Care at [address] [address] Jason Presley MD CRP (acute phase) 11/26/2024 Telephone [facility] Primary Care at [address] [address] Jason Presley MD No active insurance 11/24/2024 4:12 PM CDT - 11/24/2024 11:59 PM CDT Hospital Encounter [address] [address] Epiploic appendagitis Discharge Disposition: Discharge to home or self care 11/24/2024 4:00 PM CDT Lab [facility] Outpatient Lab at [address] [address] 11/24/2024 4:15 PM CDT Office Visit [facility] Primary Care at [address] [address] Jason Presley MD Epiploic appendagitis (Primary Dx) 11/19/2024 8:14 PM CDT - 11/19/2024 8:59 PM CDT Emergency [facility] Emergency Department [address] [id number] Trell Owens MD Abdominal pain (Primary Dx) Discharge Disposition: Discharge to home or self care 11/19/2024 Telephone [facility] Medical [facility] Primary Care at [address] [address] Jason Presley MD Appointment Request 11/18/2024 Orders Only [facility] Medical [facility] Primary Care at [address] [address] Provider, MD Galdino from Last 3 Months Allergies Active Allergy Reactions Criticality Noted Date Comments Azithromycin Vomiting High 02/21/2021 Medications dicyclomine (BENTYL) 20 mg tablet Take 1 tablet (20 mg total) by mouth 2 (two) times a day 20 tablet 5 026 Active naproxen (NAPROSYN) 500 mg tabletIndicati ons:Anti-infla mmatory,Pain Take 1 tablet (500 mg total) by mouth 2 (two) times a day as needed for pain (pain) Then BID PRN after 1 week 60 tablet [address] (PROTONIX) 40 mg EC tablet Take 1 tablet (40 mg total) by mouth daily 90 tablet 1 5 Active albuterol HFA (PROVENTIL HFA,VENTOLIN HFA,PROAIR HFA) 90 mcg/actuation inhalerIndicat ions:Hx of wheezing Inhale 2 puffs every 6 (six) hours as needed for wheezing 1 each [address] (VOLTAREN) 75 mg EC tablet Take 1 tablet (75 mg total) by mouth 2 (two) times a day as needed (pain) 60 tablet 4 025 Discontinued cyclobenzaprin e (FLEXERIL) 5 mg tablet Take 1 tablet (5 mg total) by mouth 3 (three) times a day as needed for muscle spasms Can cause fatigue 30 tablet 025 Discontinued pantoprazole sodium (PANTOPRAZOLE ORAL) Take by mouth 025 Discontinued Active Problems Problem Noted Date Diagnosed Date Scoliosis of thoracic spine 04/14/2024 Assessment & Plan (04/14/2024 1:44 PM OPERATIONS PLANT ATTENDANT): Mild curve noted on exam and is [...] needed Assessment & Plan (07/12/2022 8:20 AM OPERATIONS PLANT ATTENDANT): A(n) yearly well adult visit has been [...] milk. Talked to mom about seeing an land surveying manager due to in the insurance at [...] 04/14/2022 Assessment & Plan (07/24/2021 10:56 AM OPERATIONS PLANT ATTENDANT): Keep menstrual calendar. On counter no have any days cycle 1 if there are any problems with headaches, cramping, any clotting or adam bleeding Visit for TB skin test 07/24/202112/29 Assessment & Plan (07/24/2021 11:02 AM OPERATIONS PLANT ATTENDANT): The the TB skin test today, will [...] 04/14/2022 Assessment & Plan (07/24/2021 11:12 AM OPERATIONS PLANT ATTENDANT): Noted this time immunization record is questionable, [...] 06/02/2023 Influenza, Trivalent, IM (MDV) 06/18/2017,2014,03/06/2014 Influenza, Trivalent, Preser vative Free, Intramuscular 03/21/2024 Influenza, Unspecified 03/24/2024,03/14/2022 PPD TEST 05/29/2023,08/29/2022,07/22/2021 [employer] SARS-CoV-2 Monovalent Vaccination (12+ Yrs) PURPLE 03/14/2022 Pfizer Sars-Cov-2 Bivalent V accination (12+ YRS) 04/08/2022 Sars-cov-2 Covid-19 Oscar, Narciso Carreon/ade Nino.1 06/02/2023 Tdap 10/23/2022 Social History Tobacco Use [...] on file Legal Sex Female 4:43 PM OPERATIONS PLANT ATTENDANT Gender Identity Female 12/25/2022 5:34 AM CDT Sexual Orientation Not on file Last Filed Vital Signs Vital Sign Reading Time Taken Comments Blood Pressure 116/80 11/24/2024 3:49 PM CDT Pulse 78 11/24/2024 3:49 PM CDT Temperature 36.1 C (96.9 F) 11/24/2024 3:49 PM CDT Respiratory Rate 16 11/24/2024 3:49 PM CDT Oxygen Saturation 98% 11/24/2024 3:49 PM CDT Inhaled Oxygen Concentration - - Weight 83.5 kg (184 lb) 11/24/2024 3:49 PM CDT Height 170.2 cm (5' 7) 11/24/2024 3:49 PM CDT Body Mass Index 28.82 11/24/2024 3:49 PM CDT Plan of Treatment Not on file Procedures Procedure Name Priority Date/Time Associated Diagnosis Comments CRP (ACUTE PHASE) Routine 11/24/2024 4:1 2 PM CDT Epiploic appendagitis EGFR STAT 11/19/2024 7:37 PM CDT DIFFERENTIAL AUTO STAT 11/19/2024 7:3 7 PM CDT LIPASE STAT 11/19/2024 7:37 PM CDT COMPREHENSIVE METABOLIC PANEL STAT 11/19/2024 7:37 PM CDT CBC WITH AUTO DIFFERENTIAL STAT 11/19/2024 7:[address] ABDOMEN PELVIS W CONTRAST Schedule Routine, Read Routine (OP Routine) 11/17/2024 8:43 AM CDT from Last 3 Months Results * CRP (acute phase) (11/24/2024 4:12 PM CDT) CRP <3.0 <=10.0 mg/L Blood 11/24/2024 4:12 PM CDT 11/24/2024 9:30 PM CDT Jason Presley MD LAB BLOOD ORDERABLES Final Result Performing Organization Address City/State/[facility] Co ct Phone Number [facility] [phone] [address] Department of Laboratories [place], [place] [id number] * eGFR (11/19/2024 7:37 PM CDT) eGFR >90 >=60 mL/min/1. 73 m2 Comment: Interpretive Data Reference Interval Normal >/= 90 mL/min/1.73m2 Mildly decreased* 60 - 89 mL/min/1.73m2 Mildly to moderately decreased 45 - 59 mL/min/1.73m2 Moderately to severely decreased 30 - 44 mL/min/1.73m2 Severely decreased 15 - 29 mL/min/1.73m2 Kidney Failure < 15 mL/min/1.73m2 *Relative to young adult level Estimated glomerular filtration rate is determined by the 2020 CKD-EPI equation recommended by the National Kidney Foundation (A Unifying Approach to GFR Estimation: Recommendations of the NKF-ASK Task Force on Reassessing the Inclusion of Race in Diagnosing Kidney Disease, JASN 2020). The CKD-EPI equation should not be used for patients with unstable renal function and has not been validated in children and those over 70. Current interpretive data was last reviewed 2021. Blood 11/19/2024 7:37 PM CDT 11/19/2024 7:40 PM CDT us Trell Owens MD LAB BLOOD ORDERABLES Final Res ult [facility] ([place]) [facility] Department [place] [address] * Differential, auto (11/19/2024 7:37 PM CDT) Neutrophil abs 3.35 1.50 - 6.50 K/cumm Imm gran abs 0.02 0.00 - 0.10 K/cumm [facility] ([place]) Lymphocyte abs 1.44 0.80 - 3.30 K/cumm [facility] ([place]) Monocyte abs 0.41 0.20 - 0.80 K/cumm [facility] ([place]) Eosinophil abs 0.11 0.00 - 0.50 K/cumm [facility] ([place]) Basophil abs 0.05 0.00 - 0.10 K/cumm [facility] ([place]) Neutrophil pct 62.3 % [facility] ([place]) Comment: Interpretive Data Percent cell count reference ranges are not reported, since discordance with absolute values may lead to misinterpretation of CBC data. Current Interpretive Data was last revised on 2017. Imm gran pct 0.4 % [facility] ([place]) Comment: Interpretive Data Percent cell count reference ranges are not reported, since discordance with absolute values may lead to misinterpretation of CBC data. Current Interpretive Data was last revised on 2017. Lymphocyte pct 26.8 % [facility] ([place]) Comment: Interpretive Data Percent cell count reference ranges are not reported, since discordance with absolute values may lead to misinterpretation of CBC data. Current Interpretive Data was last revised on 2017. Monocyte pct 7.6 % [facility] ([place]) Comment: Interpretive Data Percent cell count reference ranges are not reported, since discordance with absolute values may lead to misinterpretation of CBC data. Current Interpretive Data was last revised on 2017. Eosinophil pct 2.0 % [facility] ([place]) Comment: Interpretive Data Percent cell count reference ranges are not reported, since discordance with absolute values may lead to misinterpretation of CBC data. Current Interpretive Data was last revised on 2017. Basophil pct 0.9 % [facility] ([place]) Comment: Interpretive Data Percent cell count reference ranges are not reported, since discordance with absolute values may lead to misinterpretation of CBC data. Current Interpretive Data was last revised on 2017. Blood 11/19/2024 7:37 PM CDT 11/19/2024 7:40 PM CDT us Trell Owens MD LAB BLOOD ORDERABLES Final Res ult [facility] ([place]) [facility] Department [place] [address] * CBC with auto differential (11/19/2024 7:37 PM CDT) WBC 5.38 3.80 - 9.90 K/cumm Hgb 13.0 11.9 - 15.5 g/dL [facility] ([place]) Hct 39.2 35.6 - 45.5 % [facility] ([place]) Plt 308 150 - 400 K/cumm [facility] ([place]) MPV 10.2 9.1 - 12.3 fL [facility] ([place]) RBC 4.40 3.90 - 5.20 M/cumm [facility] ([place]) MCV 89.1 81.3 - 96.4 fL [facility] ([place]) MCH 29.5 27.1 - 33.3 pg [facility] ([place]) MCHC 33.2 32.3 - 35.7 g/dL [facility] ([place]) RDW CV 11.9 11.1 - 14.9 % [facility] ([place]) RDW SD 38.4 35.7 - 48.1 fL [facility] ([place]) NRBC abs 0.00 0.00 - 0.01 K/cumm [facility] ([place]) Blood Venous blood specimen / Unknown 11/19/2024 7:37 PM CDT 11/19/2024 7:40 PM CDT us Trell Owens MD LAB BLOOD ORDERABLES Final Res ult [facility] ([place]) 1 [facility] [place] [address] * Lipase (11/19/2024 7:37 PM CDT) Lipase 29 10 - 99 Units/L Blood Venous blood specimen / Unknown 11/19/2024 7:37 PM CDT 11/19/2024 7:40 PM CDT Trell Owens MD LAB BLOOD ORDERABLES Final Res ult Performing Organization Address [facility] Co de Phone Number [facility] ([place]) [facility] [place] [address] * Comprehensive metabolic panel (11/19/2024 7:37 PM CDT) Sodium 137 135 - 145 mmol/L Potassium, pl 3.8 3.3 - 4.9 mmol/L [facility] ([place]) Chloride 102 97 - 110 mmol/L [facility] ([place]) CO2 25 22 - 32 mmol/L [facility] ([place]) Anion gap 10 2 - 15 mmol/L [facility] ([place]) BUN 7 6 - 25 mg/dL [facility] ([place]) Creatinine 0.68 0.60 - 1.10 mg/dL [facility] ([place]) Comment:Icteric sample, test results may be affected. Glucose 108 70 - 199 mg/dL [facility] ([place]) Comment: Interpretive Data Fasting glucose >/= 126 mg/dl is diagnostic for diabetes. Fasting is defined as no caloric intake for at least 8 hours. Fasting glucose between 100 mg/dl to 125 mg/dl is diagnostic of prediabetes. In a patient with classic symptoms of hyperglycemia or hyperglycemic crisis, a random glucose >/= 200 mg/dl is diagnostic for diabetes. In the absence of unequivocal hyperglycemia, results should be confirmed by repeat testing. The classification and Diagnosis of Diabetes Diabetes Care 2021; 46: S19-S40. Current interpretive data was last revised 2022. Calcium 9.2 8.5 - 10.3 mg/dL [facility] ([place]) Bilirubin, total 1.2 0.1 - 1.2 mg/dL [facility] ([place]) Protein, pl 7.5 6.5 - 8.5 g/dL [facility] ([place]) Albumin 4.5 3.5 - 5.0 g/dL [facility] ([place]) Alk phos 82 40 - 130 Units/L [facility] ([place]) ALT 15 7 - 45 Units/L [facility] ([place]) AST 15 10 - 45 Units/L [facility] ([place]) Comment:Slightly Hemolyzed S pecimen Blood 11/19/2024 7:3 7 PM CDT 11/19/2024 7:40 PM CDT Trell Owens MD LAB BLOOD ORDERABLES Final Res ult [facility] ([place]) [address] [facility] Department [place] [address] * CT Abdomen Pelvis W Contrast (11/17/2024 8:43 AM CDT) Anatomical Region Laterality Modality Body N/A Computed Tomogra phy Historical Provider IMG CT PROCEDURES Final R esult from Last 3 Months Insurance [facility] Care Teams Bit Sharpener Operator Relationship Specialty Start Date End Date Jason Presley MD [address] [place] [id number] PCP - General Family Medicine 12/13/21 Foreign Osborn MD [address] [place] [address] DR G[address] [address] Surgeon Orthopedic Surgery 08/29/22
--- OUTSIDE RECORDS SUMMARY | 2024-12-20 01:11 | XMS_ITS | Clinical Summary ---
Author Organization [facility] [place] [address] Address [address] [place] [id number] Care Team Providers Care [employer] Person Name Role Phone Jason Presley MD Primary Care Provider [phone] Foreign Osborn MD Unavailable [phone] Allergies Active Allergy Reactions Criticality Noted Date [...] spasms Can cause fatigue 30 tablet 4 025 Discontinued pantoprazole sodium (PANTOPRAZOLE ORAL) Take by mouth 025 Discontinued Active Problems Problem Noted Date Diagnosed Date Scoliosis of thoracic spine 04/14/2024 Assessment & Plan (04/14/2024 1:44 PM TIGHTENING MACHINE OPERATOR): Mild curve noted on exam and is [...] needed Assessment & Plan (07/12/2022 8:20 AM TIGHTENING MACHINE OPERATOR): A(n) yearly well adult visit has been [...] milk. Talked to mom about seeing an thread dresser due to in the insurance at this [...] Kenalog 40 mg IM today x1 Cough 08/19/202112/29/2021 Assessment & Plan (09/06/2021 8:14 PM CDT): [...] 04/14/2022 Assessment & Plan (07/24/2021 10:56 AM TIGHTENING MACHINE OPERATOR): Keep menstrual calendar. On counter no have any days cycle 1 if there are any problems with headaches, cramping, any clotting or adam bleeding Visit for TB skin test 07/24/202112/29 Assessment & Plan (07/24/2021 11:02 AM TIGHTENING MACHINE OPERATOR): The the TB skin test today, will [...] 04/14/2022 Assessment & Plan (07/24/2021 11:12 AM TIGHTENING MACHINE OPERATOR): Noted this time immunization record is questionable, mother does not know with the record is at. Today will talk to her in regards to having titers done in regards to MMR and varicella. States understands will also consider check with the school and past provider for record. Encounters Date Type Department Care Team Description 12/01/2024 Results Follow-Up [facility] Primary Care at [address] [id number] Jason Presley MD CRP (acute phase) 11/26/2024 Telephone [facility] Primary Care at [address] [phone] Jason Presley MD No active insurance 11/24/2024 4:15 PM CDT Office Visit [facility] Primary Care at [address] [phone] Jason Presley MD Epiploic appendagitis (Primary Dx) 11/24/2024 4:12 PM CDT - 11/24/2024 11:59 PM CDT Hospital Encounter [address] [address] Epiploic appendagitis Discharge Disposition: Discharge to home or self care 11/24/2024 4:00 PM CDT Lab [facility] Outpatient Lab at [address] [id number] 11/19/2024 8:14 PM CDT - 11/19/2024 8:59 PM CDT Emergency [facility] Emergency Department [address] [place] [address] Trell Owens MD Abdominal pain (Primary Dx) Discharge Disposition: Discharge to home or self care 11/19/2024 Telephone [facility] Primary Care at [address] [phone] Jason Presley MD Appointment Request 11/18/2024 Orders Only [facility] Primary Care at [address] [phone] Provider, MD Galdino from Last 3 Months Immunizations Immunization Administration Dates Next Due Influenza, Quadrivalent, Winnie l Culture-based MDCK, Preservative Free, Antibiotic Free, Intramuscular 06/02/2023 Influenza, Quadrivalent, Spl it, Preservative Free, Intramuscular 04/08/2022,02/26/2021,02/28/2020,06/14 Influenza, Trivalent, Cell Culture-based MDCK, Preservative Free, Antibiotic Free, Intramuscular 06/02/2023 Influenza, Trivalent, IM (MDV) 06/18/2017,2014,03/06/2014 Influenza, Trivalent, Preser vative Free, Intramuscular 03/21/2024 Influenza, Unspecified 03/24/2024,03/14/2022 PPD TEST 05/29/2023,08/29/2022,07/22/2021 Pfizer SARS-CoV-2 Monovalent Vaccination (12+ Yrs) PURPLE 03/14/2022 Pfizer Sars-Cov-2 Bivalent V accination (12+ YRS) 04/08/2022 Sars-cov-2 Covid-19 Mrna, Bi myah, Narciso/ade Ba.1 06/02/2023 Tdap 10/23/2022 Medical History Medical [...] on file Legal Sex Female 4:43 PM TIGHTENING MACHINE OPERATOR Gender Identity Female 12/25/2022 5:34 AM CDT [...] 11/24/2024 3:49 PM CDT Plan of Treatment Health Maintenance Due Date Last Done Comments Cervical Cancer Screening 2001 Hepatitis C Screening 2001 Varicella Vaccines (1 of 2 - 13+ 2-dose series) 2014 Meningococcal B Vaccine (1 of 2 - Standard) 2017 Hepatitis B Screening 2019 Regular Well Visit/Exam 18-64 08/23/2024 08/24/2023, 08/29/2022, 07/12/2022 Influenza Vaccine (#1) 2025 , 03/21/2024, 06/02/2023, Additional history exists Depression Screening 04/14/2025 04/14/2024, 08/24/2023, 08/29/2022, Additional history exists DTaP/Tdap/Td Vaccine (2 - Td or Tdap) 10/23/2032 10/23/2022 Covid-19 Vaccine Completed 03/21/2024, 10/2023, 06/02/2023, Additional history exists HPV Vaccines Discontinued Pneumococcal vaccine <65 Aged Out No longer eligible based on patient's age to complete this topic Procedures Procedure Name Priority Date/Time Associated Diagnosis [...] 4:12 PM CDT 11/24/2024 9:30 PM CDT us Jason Presley MD LAB BLOOD ORDERABLES Final Result Performing Organization Address City/[facility]/ZIP Co de Phone Number PAOLA MACKAY [address] Department [place] [address] * eGFR (11/19/2024 7:37 PM CDT) eGFR [...] LAB BLOOD ORDERABLES Final Res ult PAOLA JOSE A ([place]) 1 [facility] Department [place] [address] * Differential, auto (11/19/2024 7:37 PM CDT) [...] Final Res ult [facility] ([place]) 1 [facility] Department [place] [address] * CBC with auto differential (11/19/2024 7:37 [...] Final Res ult PAOLA NARANJO ([place]) 1 [facility] Department [place] [address] * Lipase (11/19/2024 7:37 PM CDT) Lipase 29 10 - 99 Units/L Blood Venous blood specimen / Unknown 11/19/2024 7:37 PM CDT 11/19/2024 7:40 PM CDT us Trell Owens MD LAB BLOOD ORDERABLES Final Res ult PAOLA NARANJO ([place]) 1 [facility] Department of Laboratories [place], [place] [address] * Comprehensive metabolic panel (11/19/2024 7:37 PM CDT) Sodium 137 135 - 145 mmol/L Potassium, pl 3.8 3.3 - 4.9 mmol/L [facility] ([place]) Chloride 102 97 - 110 mmol/L [facility] ([place]) CO2 25 22 - 32 mmol/L [facility] ([place]) Anion gap 10 2 - 15 mmol/L [facility] ([place]) BUN 7 6 - 25 mg/dL [facility] ([place]) Creatinine 0.68 0.60 - 1.10 mg/dL [facility] ([place]) Comment:Icteric sample, test results may be affected. Glucose 108 70 - 199 mg/dL [facility] ([place]) Comment: Interpretive Data Fasting glucose >/= [...] (FELICIA) Comment:Slightly Hemolyzed S pecimen Blood 11/19/2024 7:37 PM CDT 11/19/2024 7:40 PM CDT us Trell Owens MD LAB BLOOD ORDERABLES Final Res ult [facility] ([place]) 1 [facility] Department [place] [address] * CT Abdomen Pelvis W Contrast (11/17/2024 8:43 AM CDT) Anatomical Region Laterality Modality Body N/A Computed Tomogra phy us Historical Provider IMG CT PROCEDURES Final R esult from Last 3 Months Insurance [facility] Care Teams [employer] Person Relationship Specialty Start Date End Date Jason Presley MD [address] [place] [id number] PCP - General Family Medicine 12/13/21 Foreign Osborn MD [address] [place] [address] DR GALEANA [address] [address] Surgeon Orthopedic Surgery 08/29/22
--- NOTE | 2024-12-20 01:23 | PC.NURSE ---
TAKEN TO XRAY
--- NOTE | 2024-12-20 01:34 | PC.NURSE ---
RESTING ON STRETHCER IN ROOM. MOTHER AT HER SIDE. NO NEEDS VOICED AT THIS TIME. CURRENTLY WAITING ON XRAY RESULTS
[2024-12-20 03:33] VITALS: BP 126/76; PULSE 78; RESP 18; O2SAT 97
== END 2024-12-20 03:33 | disposition home or self-care (01) ==
PROVIDERS: Emergency Provider Emergency Medicine; PCP Family Medicine
DX: S63.502A Unspecified sprain of left wrist, initial encounter (principal); S66.912A Strain of unspecified muscle, fascia and tendon at wrist and hand level, left hand, initial encounter; X50.0XXA Overexertion from strenuous movement or load, initial encounter; Y93.K1 Activity, walking an animal
CPT/HCPCS: 29125; 73110; 99283